=== PATIENT | female | born 1940 | race Caucasian/White ===

== ENCOUNTER → 2016-07-11 | Outpatient (CLI) | payer MEDICARE, BC ==
--- NOTE | 2016-07-11 17:01 | RADRPT ---
PROCEDURE: XR right knee. CLINICAL INDICATION: Knee pain TECHNIQUE: AP weightbearing, lateral weightbearing and sunrise views are available for review. COMPARISON: None available FINDINGS: There is severe osteoarthrosis involving the medial tibial femoral compartment, moderate to severe o steoarthrosis involving the patellofemoral compartment and mild osteoarthrosis involving the lateral tibial femoral compartment. This is associated with joint space narrowing, subchondral sclerosis an d osteophytosis. There is otherwise normal mineralization, architecture and alignment. No fractures are identified. No osseous lesions are identified. The soft tissues are unremarkable. IMPRESSION: Severe osteoarthrosis involving the medial tibial femoral compartment, moderate to severe osteoarthr osis involving the patellofemoral compartment and mild osteoarthrosis involving the lateral tibial f emoral compartment.. RPTAT: [facility] .Boyd Cottrell MD, Date Time Electronically viewed and signed by .Boyd Cottrell MD, on 07/11/2016 17:00 .B/
--- NOTE | 2016-07-17 22:09 | HKNOTE ---
DATE OF SERVICE: 07/11/2016 MAIN COMPLAINT: Pain in the right knee. HISTORY OF MAIN COMPLAINT: The patient is a 75-year-old female who complains of pain in her right k nee. ____ right knee at the age of 15. The patient was told that her patella was unstable, but no treatment was prescribed. Pain in the right knee has become progressively worse. She was seen by Dr. Jamil Zavala. They r eferred her to me for further evaluation of her painful knee. PRESENT COMPLAINTS: The patient's main pain in her knee is at night. Pain is described as being se william on occasion, but "mild for now." She is not able to take NSAIDs. The right knee swells, does not lock or feel unstable. Sometimes it is difficult for her to flex the knee all the way, but exte nsion is always possible. Her pain is aggravated by walking and stair climbing. She does get rest pain and night pain. She is not taking any medications for the pain at present. She gets pain in h er lower back at times, especially if flexing forward to "pick something up off the floor." No numb ness or tingling in her legs. On a flat and level surface, she can walk "as I need to go." She martin s not use a walking aid. The patient does not limp. She does not have a shoe lift. She cannot cli p her toenails or put on her shoes and socks. PAST ORTHOPEDIC HISTORY: PREVIOUS ORTHOPEDIC OPERATIONS: The patient had surgery to her toes on both feet 05/2013 and . These surgeries were performed as an outpatient and she is not happy with the result. PRIOR CORTISONE INTAKE: The patient has had cortisone injections into the right knee. ALCOHOL INTAKE: None. OTHER JOINT PROBLEMS: The patient gets pain in her right foot and ankle. The right ankle swells. Note that Dr. Zavala obtained an ultrasound, which was negative for deep vein thrombosis. The pat ient currently on diuretics, which she takes for 2 weeks at a time and "it helps a lot." The patient also has problems with her right shoulder, which has been stiff in the past and for whic h she had a manipulation for "frozen shoulder" (ordered by Dr. Farrukh Bai). WORK STATUS: The patient is a retired construction secretary. PAST MEDICAL HISTORY: 1. Hypertension. 2. Diverticulitis. 3. Gastric bleed 2 years ago. PAST SURGICAL HISTORY: 1. Carpal tunnel syndrome release. 2. Bladder surgery in 1998. ALLERGIES: NONSTEROIDAL ANTI-INFLAMMATORY MEDICATIONS. MEDICATIONS: 1. Metoprolol 50 mg daily. 2. Atorvastatin 20 mg daily. 3. Losartan/hydrochlorothiazide 80/12.5 mg daily. 4. Multivitamins. 5. Vitamin C. 6. Fish oil 1000 mg 4 times a day. PRIOR MAJOR INJURIES: None. FAMILY HISTORY: Father at 81 of heart problems. Mother at 96 of unstated cause. SYSTEMS REVIEW: Hypertension, leakage of urine, has passed kidney stones in the past, ankles swell from time to time, otherwise negative. HABITS: The patient does not smoke or drink alcoholic beverages. DIRECTOR OF RESEARCH: Jamil Zavala MD, [address], [address], [place] [address]. PHYSICAL EXAMINATION: GENERAL: The patient is a fit-looking and youthful 75-year-old female. She is somewhat overweight. VITAL SIGNS: Height 5 feet 1, weight 279 pounds. Blood pressure 135/60, temperature 98.2. GAIT: The patient's gait is normal. She walks without a walking aid. EXAMINATION: Both hips have full range of motion without pain. RIGHT KNEE: The right knee shows varus alignment. Active and passive extension is 0 degrees. Acti ve and passive flexion is 135 degrees. The medial and lateral collateral ligaments and cruciate lig aments are intact. Ej test is negative. There is no effusion, scarring, or cysts. 3+ crepitu s in the knee, none in the patella. Tender over the medial joint line. 3+ crepitus under the nicholson la. The patella tracks normally. There is no tenderness on the articular surface of the patella or in the patellar groove. The Q angle is normal. IMAGING: Plain x-rays of the right knee obtained today show [id number] degenerative changes in th e medial compartment of the knee and the patellofemoral joint. There is still some minimal remainin g joint space in both locations. Small osteophytes are present. Subchondral sclerosis and intraosseous cyst formation. DIAGNOSIS: 1. Moderate degenerative osteoarthritis of the right knee. 2. Diverticulitis. 3. History of gastric bleed. 4. ALLERGIC TO NONSTEROIDAL ANTI-INFLAMMATORY DRUGS. 5. Hypertension. MANAGEMENT: Under sterile conditions, the patient was given injection of 2 mL of Kenalog and 6 mL o f 2% lidocaine into the right knee. She will be seen again by me as necessary for further evaluatio n and treatment. Dictated By: PERLA ESPINOZA/AUTUMN Conf#: [id number] DID#: [id number]
--- NOTE | 2016-07-17 22:10 | HKNOTE ---
DATE OF SERVICE: 07/11/2016 ADDENDUM ALLERGIES: SULFA Dictated By: PERLA ESPINOZA/AUTUMN Conf#: [id number] DID#: [id number]
== END | disposition home or self-care (01) ==
LOC: HKI 14:00
DX: M25.561 Pain in right knee (principal); M17.11 Unilateral primary osteoarthritis, right knee; K57.92 Diverticulitis of intestine, part unspecified, without perforation or abscess without bleeding; I10 Essential (primary) hypertension
CPT/HCPCS: 20610; 73562; G0463